=== PATIENT | female | born 2000 | race Two or more races ===

== ENCOUNTER 2024-11-05 11:50 | Observation (INO) | payer MEDICAID, SELFPAY ==
[2024-11-05] VITALS (31 sets, daily range): BP systolic 104; BP diastolic 67; PULSE 72–95; RESP 18–96; TEMP 36.6; O2SAT 97–100; BMI 33.7
[2024-11-05] MEDS: RINGERS LACTATED 1000 ML 1,000 ML 999 ML IV (12:59)
[2024-11-05 14:21] LABS: Basophils # (Auto) 0.0 Thou/mm3 (0.0-0.2); Basophils % (Auto) 0 % (0-2.5); Eosinophils # (Auto) 0.1 Thou/mm3 (0.0-0.5); Eosinophils % (Auto) 1 % (0-10); Hematocrit 33.5 % (36.0-46.0); Hemoglobin 11.4 g/dL (12.0-16.0); Immature Granulocytes Auto 0.23 Thou/mm3 (0.00-0.00); Lymphocytes # (Auto) 1.5 Thou/mm3 (1.0-4.8); Lymphocytes % (Auto) 15 % (10-50); Mean Corpuscular HGB Conc 34.0 g/dl (31.0-37.0); Mean Corpuscular Hemoglobin 32.0 pg (25.0-35.0); Mean Corpuscular Volume 94 fL (80-100); Monocytes # (Auto) 0.7 Thou/mm3 (0.0-0.8); Monocytes % (Auto) 6 % (0-12); Neutrophils # (Auto) 8.0 Thou/mm3 (1.8-7.7); Neutrophils % (Auto) 76 % (37-80); Nucleated Red Blood Cell # 0.00 Thou/mm3 (0.00-0.00); Nucleated Red Blood Cell % 0 /100 WBC (0); Platelet Count 312 Thou/mm3 (140-440); RDW Standard Deviation 43.8 fL (36.4-46.3); Red Blood Count 3.56 Miln/mm3 (4.00-5.20); White Blood Count 10.5 Thou/mm3 (3.6-11.0)
[2024-11-05 14:50] LABS: Collection Type, Urine Clean Catch
[2024-11-05 14:54] LABS: Alanine Aminotransferase 7 U/L (10-49); Albumin, Serum 3.9 gm/dL (3.5-5.0); Albumin/Globulin Ratio 1.5 (1.2-2.2); Alkaline Phosphatase 134 U/L (46-116); Amylase 112 U/L (30-118); Anion Gap 14 (7-16); Aspartate Amino Transferase 15 U/L (0-34); BUN/Creatinine Ratio 14 Ratio (12-20); Bilirubin,Total 0.3 mg/dL (0.3-1.2); Blood Urea Nitrogen 7 mg/dL (9-23); Calcium 8.9 mg/dL (8.3-10.6); Calcium (Corrected) 9.0 mg/dL (8.5-10.1); Carbon Dioxide 20.3 mMol/L (20.0-31.0); Chloride 104 mMol/L (98-107); Creatinine (Component) 0.5 mg/dL (0.6-1.3); Estimated Creatinine Clearance 192.5 mL/min (>60); Globulin 2.6 gm/dL (2.3-3.5); Glucose 87 mg/dL (74-106); Lipase 43 U/L (12-53); Osmolality,Calculated 272 (275-295); Potassium 3.8 mMol/L (3.4-5.1); Sodium 138 mMol/L (136-145); Total Protein 6.5 gm/dL (5.7-8.2); eGFR > 60 See Note
[2024-11-05 15:12] LABS: Bacteria,Urine 4+; Bilirubin,Urine Negative (Negative); Blood,Urine Negative (Negative); Clarity,Urine Clear (Clear/Hazy); Color,Urine Lt-Yellow (Lt Yel-Yel); Glucose, Urine Negative (Negative); Ketones,Urine Negative (Negative); Leukocyte Esterase,Urine Negative (Negative); Nitrite,Urine Negative (Negative); PH,Urine 7.0 (5.0-7.0); Protein,Urine Negative (Neg - Trace); RBC,Urine < 1 /hpf (0-3); Specific Gravity,Urine 1.007 (1.001-1.035); Squamous Epithelial Cell,Urine 3 /hpf (0-5); Urobilinogen,Urine Negative mg/dL (0.0-1.0); WBC,Urine 1 /hpf (0-5)
[2024-11-05 15:35] LABS: Culture Indicated,Urine Yes
== END 2024-11-05 15:53 | disposition home or self-care (01) ==
PROVIDERS: Obstetrics & Gynecology; Admitting Provider Specialist; Visit Provider Specialist
DX: O21.2 Late vomiting of pregnancy (principal); O26.893 Other specified pregnancy related conditions, third trimester; R10.9 Unspecified abdominal pain; R19.7 Diarrhea, unspecified; Z3A.34 34 weeks gestation of pregnancy
CPT/HCPCS: 36415; 59025; 59899; 80053; 81001; 82150; 83690; 85025; 87086; J7120

== ENCOUNTER 2024-12-15 11:34 | Inpatient (IN) | payer MEDICAID, SELFPAY ==
[2024-12-15] VITALS (85 sets, daily range): BP systolic 113–137; BP diastolic 57–80; PULSE 66–127; RESP 17–98; TEMP 36.6–37; O2SAT 92–100; BMI 39.2; BMI 39.4
--- NOTE | 2024-12-15 13:06 | PD.LDHP ---
Documentation for date of: 12/15/24 OB Labor/Induct. HPI History of Present Illness : 1 Para: 0 Term pregnancies: 0 pregnancies: 0 Living children: 0 History of Abortions: Spontaneous and Elective: 0 History of Vaginal deliveries: 0 History of sections: No History of : No MADDI: 12/12/24 History of present illness: H and P dictated in Nuance on STAT line #9 : [id number] History of Present Adequate Care: Yes Past Medical History Surgical History SURGICAL: Negative Section Meds Home Medications and Allergies Home Medications ?Medication ?Instructions ?Recorded ?Confirmed ?Type acetaminophen 325 mg tablet 650 mg PO .x1 PRN pain 11/05/24 12/15/24 History (Aminofen) vit no.95-ferrous 1 tab PO DAILY 12/15/24 12/15/24 History fumarate 28 mg-folic acid 800 mcg tablet () Allergies Allergy/AdvReac Type Severity Reaction Status Date / Time No Known Allergies Allergy Verified 12/15/24 11:46 OB Exam Physical Exam Vital signs: Temp Pulse Resp BP Pulse Ox 98.6 F 83 18 113/65 99 12/15/24 11:40 12/15/24 11:40 12/15/24 11:40 12/15/24 11:40 12/15/24 12:11
--- NOTE | 2024-12-15 13:34 | ESHP_ITS ---
RE: TRENT RACHEL : 2000 DATE OF ADMISSION: 12/15/2024 HISTORY OF PRESENT ILLNESS: This is a 23-year-old 3, para 0-0-2-0 with intrauterine at 40 weeks and 3 days with due date of 12/12 who presents to Labor and Delivery complaining of an episode of bleeding. She presented to the maternal infant unit and was known to be dilated 4 cm, 70% -2 vertex intact with no bleeding seen by the RN and a category 1 tracing. Therefore, the patient was allowed to ambulate and she is currently ambulating. Her Group B strep vaginal rectal colonization was positive. ALLERGIES: NO KNOWN DRUG ALLERGIES. MEDICATIONS: multivitamin 1 p.o. daily. PAST MEDICAL HISTORY: Denies. FAMILY HISTORY: Maternal cousin has Down syndrome. She has another maternal cousin with neurofibromatosis and cognitive difficulties. PAST SURGICAL HISTORY: Denies. OBSTETRIC HISTORY: Termination of in 2017 and 2019 in the first trimester with medication. SOCIAL HISTORY: She denies any alcohol, drug use, or smoking. REVIEW OF SYSTEMS: She denies any chest pain, palpitations, cough, fever, shortness of breath, flank pain, or lower extremity pain. PHYSICAL EXAMINATION: VITAL SIGNS: Blood pressure is 118/69, heart rate 71, respirations 18, temperature 98.2, weight 211 pounds. HEENT: Oropharynx and sclerae are clear. LUNGS: Clear to auscultation bilaterally. HEART: Regular rate and rhythm. ABDOMEN: Gravid consistent with estimated weight, 8 pounds. PELVIC: See RN notes. EXTREMITIES: Nontender. SKIN: No gross rashes or lesions. NEUROLOGIC: No focal deficit. ASSESSMENT AND PLAN: Intrauterine at 40 weeks and three days. Early labor. Anticipate spontaneous vaginal delivery. Informed consent was obtained. The patient made aware of the risks, complications, alternatives, and benefits of operative vaginal delivery and delivery and agrees with these modes of delivery if indicated. DT: 13:05:40 TT: 13:33:00 Ref: [id number] - TID: [id number] MTDD
[2024-12-15] MEDS: RINGERS LACTATED 1000 ML 1,000 ML 100 ML IV ×4 (14:36→21:56)
[2024-12-15] MEDS: Ampicillin Inj 2,000 MG in SODIUM CHLORIDE 0.9% (POP) 100 ML 100 MG IV (14:50)
[2024-12-15 15:36] LABS: Basophils # (Auto) 0.0 Thou/mm3 (0.0-0.2); Basophils % (Auto) 0 % (0-2.5); Eosinophils # (Auto) 0.1 Thou/mm3 (0.0-0.5); Eosinophils % (Auto) 1 % (0-10); Hematocrit 34.5 % (36.0-46.0); Hemoglobin 11.9 g/dL (12.0-16.0); Immature Granulocytes Auto 0.07 Thou/mm3 (0.00-0.00); Lymphocytes # (Auto) 2.1 Thou/mm3 (1.0-4.8); Lymphocytes % (Auto) 20 % (10-50); Mean Corpuscular HGB Conc 34.5 g/dl (31.0-37.0); Mean Corpuscular Hemoglobin 32.2 pg (25.0-35.0); Mean Corpuscular Volume 93 fL (80-100); Monocytes # (Auto) 0.6 Thou/mm3 (0.0-0.8); Monocytes % (Auto) 6 % (0-12); Neutrophils # (Auto) 7.9 Thou/mm3 (1.8-7.7); Neutrophils % (Auto) 73 % (37-80); Nucleated Red Blood Cell # 0.00 Thou/mm3 (0.00-0.00); Nucleated Red Blood Cell % 0 /100 WBC (0); Platelet Count 291 Thou/mm3 (140-440); RDW Standard Deviation 45.5 fL (36.4-46.3); Red Blood Count 3.70 Miln/mm3 (4.00-5.20); White Blood Count 10.9 Thou/mm3 (3.6-11.0)
[2024-12-15 16:22] LABS: Syphilis Nonreactive (Nonreactive)
[2024-12-15] MEDS: Ampicillin Inj 1,000 MG in SODIUM CHLORIDE 0.9% (Popper) 50 ML 50 MG IV ×2 (19:00→23:17)
[2024-12-16] VITALS (136 sets, daily range): BP systolic 107–182; BP diastolic 53–103; PULSE 58–125; RESP 15–18; TEMP 36.4–37.2; O2SAT 90–100
[2024-12-16] MEDS: RINGERS LACTATED 1000 ML 1,000 ML 100 ML IV ×2 (02:49→07:05)
[2024-12-16] MEDS: Ampicillin Inj 1,000 MG in SODIUM CHLORIDE 0.9% (Popper) 50 ML 50 MG IV ×2 (02:54→06:43)
[2024-12-16] MEDS: MINERAL OIL 30 ML UDC TOP (07:15)
[2024-12-16] MEDS: OXYTOCIN in NS 20 units 20 UNIT/1,000 ML BAG 125 UNIT IV (07:22)
[2024-12-16] MEDS: METHYLERGONOVINE INJ 0.2 MG/ML VIAL IM (07:31)
[2024-12-16] MEDS: BENZO/LANO/ALOE (Dermoplast) 60 GM CAN 1 SPRAY TOP (07:45)
[2024-12-16] MEDS: TRANEXAMIC ACID 1,000 MG IVPB 1,000 MG/100 ML BAG 200 MG IV (07:54)
[2024-12-16] MEDS: IBUPROFEN TAB 400 MG TABLET 800 MG PO ×2 (08:18→20:13)
--- NOTE | 2024-12-16 08:23 | PD.LDDELS ---
Vacuum Assisted Delivery General Patient Counseled by physician:: Yes Informed consent to patient:: Yes Estimated weight:: 7 lb 8 oz Cervical dilation:: fully dilated station:: +4 position:: OA Molding:: No Caput:: Yes Vacuum Application Vacuum type:: Mityvac Vacuum application:: flexing median Total vacuum time (min):: 1 Maximum pressure (cm Hg):: 50 Cup Placement Flexion point identified:: Yes Cup approp. for head position:: Yes Maternal tissue excluded:: Yes Vacuum Procedure Number of pulls (contractions):: 1 Number of pop-offs:: 0 Recommended range maintained:: Yes Vacuum reduced between pulls:: Yes Advancement made each pull:: Yes Vacuum successful:: Yes Immediate Evaluation Immediate assessment:: no apparent injury Data (Fall) Data Hx Section: No : 3 Term: 0 : 0 Livin Abortions: Spontaneous & Theraputic: 0 Delivery Data (Fall) Labor Data Initiation of labor: Spontaneous Induction/Augmentation Agent: None ROM date: 12/16/24 ROM time: 02:11 Amniotic membrane rupture type: Spontaneous Amniotic fluid description: Moderate Meconium Delivery Data EDC: 12/12/24 EDC calculated by:: LMP/early US confirmation Onset of labor date: 12/15/24 Onset of labor time: 20:00 Complete dilation date: 12/16/24 Complete dilation time: 03:00 [place] delivery date: 12/16/24 [place] delivery time: 07:21 Gestational age (weeks): 40 Gestational age (days): 4 Placenta delivery date: 12/16/24 Placenta delivery time: 07:26 Stage 1 total time: Labor - Stage 1 Duration 7 hours and 0 minutes Delivered by: Pablo Rojas Delivery nurse: [email or web address] Katarina nurse: [email or web address] Pick Up Man at delivery: No Support person(s) at delivery: fob Delivery Method Delivery method: Operative Vaginal Delivery Presentation: Vertex position: OA Anesthesia Type Anesthesia Type: Epidural Placenta Cord blood sent to lab: Yes cord blood collection: Cord Blood Type EBL Estimated blood loss (ml): 200 Umbilical Cord cord description: 3 Vessels Complications Complications: None [place] Data (Fall) Data order: 1 [place]'s gender: Male Identification band number: [id number] weight (gms): 7 lb 8.461 oz Weight (pounds): 7 lbs and 8.5 ozs [place] length: 21 in 1 minute: 8 5 minutes: 9
[2024-12-16 13:15] LABS: Basophils # (Auto) 0.0 Thou/mm3 (0.0-0.2); Basophils % (Auto) 0 % (0-2.5); Eosinophils # (Auto) 0.0 Thou/mm3 (0.0-0.5); Eosinophils % (Auto) 0 % (0-10); Hematocrit 32.7 % (36.0-46.0); Hemoglobin 11.5 g/dL (12.0-16.0); Immature Granulocytes Auto 0.10 Thou/mm3 (0.00-0.00); Lymphocytes # (Auto) 2.1 Thou/mm3 (1.0-4.8); Lymphocytes % (Auto) 12 % (10-50); Mean Corpuscular HGB Conc 35.2 g/dl (31.0-37.0); Mean Corpuscular Hemoglobin 32.2 pg (25.0-35.0); Mean Corpuscular Volume 92 fL (80-100); Monocytes # (Auto) 0.9 Thou/mm3 (0.0-0.8); Monocytes % (Auto) 5 % (0-12); Neutrophils # (Auto) 14.7 Thou/mm3 (1.8-7.7); Neutrophils % (Auto) 82 % (37-80); Nucleated Red Blood Cell # 0.00 Thou/mm3 (0.00-0.00); Nucleated Red Blood Cell % 0 /100 WBC (0); Platelet Count 267 Thou/mm3 (140-440); RDW Standard Deviation 44.9 fL (36.4-46.3); Red Blood Count 3.57 Miln/mm3 (4.00-5.20); White Blood Count 17.9 Thou/mm3 (3.6-11.0)
[2024-12-17 00:06] VITALS: BP 106/65; PULSE 87; RESP 18; TEMP 36.4; O2SAT 97
[2024-12-17] MEDS: HYDROcodone/APAP 5/325 TABLET 1 TAB PO (00:39)
[2024-12-17 04:10] VITALS: BP 121/79; PULSE 76; RESP 18; TEMP 36.6; O2SAT 97
--- NOTE | 2024-12-17 04:53 | ESPR_ITS ---
RE: TRENT RACHEL : 2000 DATE OF SERVICE: 12/17/2024 S: day #1, the patient denies any problems or complaints. She is voiding. She is ambulating. She is tolerating regular diet. She is passing flatus. She denies any excessive vaginal bleeding. She denies any dizziness or lightheadedness. She denies any chest pain, palpitations, shortness of breath or lower extremity pain. O: Vital Signs: Blood pressure 106/65, heart rate 87, respirations 18, temperature 97.5, pulse oximetry 97% on room air. Lungs: Clear to auscultation bilaterally. Heart: Regular rate and rhythm. Abdomen: Fundus is firm. Nontender. Extremities: Nontender. ASSESSMENT: day #1, status post vacuum-assisted vaginal delivery. P: Discharge home. Discharge instructions given. Follow up in the office in 6 weeks. DT: 04:16:22 TT: 04:52:00 Ref: [id number] - TID: [id number]
[2024-12-17 09:30] VITALS: BP 121/84; PULSE 72; RESP 18; TEMP 36.6; O2SAT 98
[2024-12-17] MEDS: IBUPROFEN TAB 400 MG TABLET 800 MG PO (14:08)
== END 2024-12-17 15:00 | disposition home or self-care (01) | DRG 560 ==
LOC: S4SX 12-16 08:02 → S4NX 12-16 09:57
PROVIDERS: Admitting Provider Specialist; Visit Provider Specialist
DX: O48.0 Post-term pregnancy (principal); Z37.0 Single live birth; Z3A.40 40 weeks gestation of pregnancy; O77.0 Labor and delivery complicated by meconium in amniotic fluid
CPT/HCPCS: 36415; 59025; 59409; 85025; 86780; 86850; 86900; 86901; 94762; J0290; J2210; J2590; J2795; J3010; J3490; J7050; J7120; S0191; A9270